=== PATIENT | female | born 1935 | race Caucasian/White ===

== ENCOUNTER 2017-04-26 11:38 | Emergency (ER) | payer OTHER ==
[~2017-04-26] VITALS: Ht 167.6 cm; Wt 76.2 kg
[~2017-04-26 11:38] MED LIST: EPINEPHrine PFS 0.1 MG/ML SYR IVP ONE; SODIUM BICARBONATE 8.4% PFS 50 MEQ/50 ML SYR IVP ONE
[2017-04-26] MEDS ORDERED: HYDR-133 PO (12:06)
[2017-04-26] MEDS ORDERED: SIN25100 PO (12:06)
[2017-04-26] MEDS ORDERED: ALPR1TAB17 PO (12:06)
[2017-04-26] MEDS ORDERED: [UNRECOGNIZED DRUG - CODE] PO (12:06)
[2017-04-26] MEDS ORDERED: SIMV40TA1 PO (12:06)
[2017-04-26] MEDS ORDERED: LISI10TA11 PO (12:06)
[2017-04-26] MEDS ORDERED: RASA1TAB PO (12:06)
[2017-04-26] MEDS ORDERED: LEVE250T7 PO (12:06)
[2017-04-26] MEDS ORDERED: LORA5SOL3 PO (12:06)
[2017-04-26 14:50] VITALS: BP 0/0
== END 2017-04-26 11:43 | disposition expired ==
LOC: MED 11:38
DX: I46.9 Cardiac arrest, cause unspecified (principal); Z79.899 Other long term (current) drug therapy; Z88.0 Allergy status to penicillin
CPT/HCPCS: 31500; 92950; 99285; J0171